=== PATIENT | male | born 1950 | race Caucasian/White ===

== ENCOUNTER 2021-04-13 08:49 | Outpatient (CLI) | payer MEDICARE ==
[2021-04-13 10:42] LABS: Hemoglobin 14.5 g/dL (13.5-17.5); Mean Corpuscular HGB CONC 34.1 g/dL (32.0-36.0); Mean Corpuscular Hemoglobin 32.7 pg (27.0-33.0); Mean Corpuscular Volume 95.7 fl (81.2-95.1); Mean Platelet Volume 11.1 fl (7.4-10.4); Platelet Count 204 10x3/uL (150-450); Red Blood Cell (RBC) Count 4.44 10x6/uL (4.32-5.72); White Blood Cell (WBC) Count 6.8 10x3/uL (3.5-10.5)
[2021-04-13 10:44] LABS: Anion Gap 12 mmol/L (10-20); BUN (Urea Nitrogen) 13 mg/dL (8.4-25.7); Calc. Creatinine Clearance 0 mL/min (70-130); Calcium 9.7 mg/dL (7.8-10.44); Carbon Dioxide 24 mmol/L (23-31); Chloride 106 mmol/L (98-107); Glucose 116 mg/dL (80-115); Potassium 4.4 mmol/L (3.5-5.1); Sodium 138 mmol/L (136-145)
[2021-04-13 22:05] LABS: SARS-CoV-2 NAA Rapid Test Not Detected (NotDetected)
== END 2021-04-13 08:50 | disposition home or self-care (01) ==
LOC: LABBT 08:49
PROVIDERS: ATTEND Thoracic Surgery (Cardiothoracic Vascular Surgery)
DX: Z01.818 Encounter for other preprocedural examination (principal); I51.7 Cardiomegaly; Z20.822 Contact with and (suspected) exposure to COVID-19
CPT/HCPCS: 71046; 80048; 85027; 86850; 86900; 86901; 93005; U0002; U0005; 93010

== ENCOUNTER 2021-04-18 06:11 | Inpatient (IN) | payer MEDICARE ==
[2021-04-13 10:44] LABS: Anion Gap 12 mmol/L (10-20); BUN (Urea Nitrogen) 13 mg/dL (8.4-25.7); Calc. Creatinine Clearance 0 mL/min (70-130); Calcium 9.7 mg/dL (7.8-10.44); Carbon Dioxide 24 mmol/L (23-31); Chloride 106 mmol/L (98-107); Glucose 116 mg/dL (80-115); Potassium 4.4 mmol/L (3.5-5.1); Sodium 138 mmol/L (136-145)
[2021-04-13 22:05] LABS: SARS-CoV-2 NAA Rapid Test Not Detected (NotDetected)
[2021-04-18] MEDS ORDERED: Albumin 5% 500 ML ONE (06:28)
[2021-04-18] MEDS ORDERED: Bupivacaine PF 0.5% 30 ML VIAL ONE (06:28)
[2021-04-18] MEDS ORDERED: EPINEPHrine 1 MG/ML AMP ONE (06:28)
[2021-04-18] MEDS ORDERED: Dexamethasone 4 mg/ml Vial ONE (06:28)
[2021-04-18] MEDS ORDERED: Heparin 10,000 UNITS/1 ML VIAL 30,000 UNITS in Sodium Chloride 0.9% 1,000 ML IVPB SCH (06:45)
[2021-04-18] MEDS ORDERED: Fentanyl 250 MCG/5 ML VIAL ONE (06:52)
[2021-04-18] MEDS ORDERED: Midazolam HCl 5 mg/5 ml Vial ONE (06:52)
[2021-04-18] MEDS ORDERED: Cardioplegic Soln 1,000 ML BAG ONE (07:58)
[2021-04-18] MEDS ORDERED: Protamine Sulfate 250 MG/25 ML VIAL ONE (07:58)
[2021-04-18] MEDS ORDERED: PHENYLEPHRINE-NS 100 MCG/ML 10 ML SYRINGE ONE ×2 (07:58→09:43)
[2021-04-18] MEDS ORDERED: Thrombin 5000 UNITS/5 ML VIAL ONE (07:58)
[2021-04-18] MEDS ORDERED: Papaverine 60 MG/2 ML VIAL ONE (07:58)
[2021-04-18] MEDS ORDERED: Heparin 30,000 units/30 ml VIAL ONE (07:58)
[2021-04-18] MEDS ORDERED: PROPOFOL 200 MG/20 ML VIAL ONE (07:58)
[2021-04-18] MEDS ORDERED: Sodium Bicarb 50 MEQ/50 ML Abboject 8.4% SYRINGE ONE (07:58)
[2021-04-18] MEDS ORDERED: Calcium Chloride 1 GM/10 ML Abboject SYRINGE ONE (07:58)
[2021-04-18] MEDS ORDERED: Vecuronium 10 MG VIAL ONE (07:58)
[2021-04-18] MEDS ORDERED: Aminocaproic Acid 5 GM/20 ML VIAL ONE (07:58)
[2021-04-18] MEDS ORDERED: Heparin 5,000 UNITS/ML VIAL ONE (07:58)
[2021-04-18] MEDS ORDERED: DOPamine 400 MG/10 ML VIAL ONE (07:58)
[2021-04-18] MEDS ORDERED: ePHEDrine Sulfate 50 MG/10 ML VIAL ONE (07:58)
[2021-04-18] MEDS ORDERED: Potassium Chloride 60 MEQ/30 ML VIAL ONE ×2 (07:58)
[2021-04-18] MEDS ORDERED: Rocuronium Bromide 10 MG/ML (10ML VIAL) ONE (07:58)
[2021-04-18] MEDS ORDERED: Lidocaine 2% PF 100 mg/5 ml Syringe ONE (07:58)
[2021-04-18] MEDS ORDERED: Mannitol 12.5 GM/50 ML ONE (07:58)
[2021-04-18] MEDS ORDERED: Magnesium Sulfate 1 GM/2 ML VIAL ONE (07:58)
[2021-04-18] MEDS ORDERED: Insulin Regular 300 UNITS/3 ML VIAL ONE (11:34)
[2021-04-18] MEDS ORDERED: Acetaminophen 325 MG TAB PO PRN (12:41)
[2021-04-18] MEDS ORDERED: Bisacodyl 10 MG SUPP PR PRN (12:41)
[2021-04-18] MEDS ORDERED: Nitroglycerin 50 MG/250 ML BOT 250 ML IVPB PRN (12:41)
[2021-04-18] MEDS ORDERED: Guaifenesin DM 100-10/5 ML UDCUP PO PRN (12:41)
[2021-04-18] MEDS ORDERED: DOPamine 400 MG/D5W 250 ML 250 ML IVPB PRN (12:41)
[2021-04-18] MEDS ORDERED: HYDROcodone/Acetaminophen 5/325 mg Tablet PO PRN ×2 (12:41)
[2021-04-18] MEDS ORDERED: Promethazine HCl 25 MG/ML VIAL IM PRN (12:41)
[2021-04-18] MEDS ORDERED: Mag-Al 1200 mg/1200 mg/30 ML UDCUP PO PRN (12:41)
[2021-04-18] MEDS ORDERED: Fentanyl 100 MCG/2 ML VIAL SLOW IVP PRN ×2 (12:41)
[2021-04-18] MEDS ORDERED: traMADol HCl 50 MG TAB PO PRN ×2 (12:41)
[2021-04-18] MEDS ORDERED: niCARdipine 25 MG in Sodium Chloride 0.9% 250 ML 240 ML IVPB PRN (12:41)
[2021-04-18] MEDS ORDERED: Ondansetron PF 4 MG/2 ML Vial IVP PRN (12:41)
[2021-04-18] MEDS ORDERED: Morphine 2 MG/ML VIAL SLOW IVP PRN (12:41)
[2021-04-18] MEDS ORDERED: Potassium Chloride 20 MEQ/100 ML PREMIX BAG IVPB PRN (12:41)
[2021-04-18] MEDS ORDERED: Bisacodyl 5 MG TAB PO PRN (12:41)
[2021-04-18] MEDS ORDERED: Norepinephrine 8 MG/0.9% NS 250 ML IVPB PRN (12:41)
[2021-04-18] MEDS ORDERED: Hetastarch 6% 500 ML 500 ML IVPB PRN (12:41)
[2021-04-18] MEDS ORDERED: D5 1/2 NS w/20 mEq KCL 1,000 ML IV SCH (12:45)
[2021-04-18] MEDS ORDERED: Dextrose 5% in Water 1,000 ML IV PRN (13:15)
[2021-04-18] MEDS ORDERED: Dextrose 50% Abboject 50 ML SYRINGE SLOW IVP PRN (13:15)
[2021-04-18 13:40] LABS: #Eosinphils 0.1 thou/uL (0.0-0.7); #Lymphocytes 1.8 thou/uL (1.20-3.40); #Monocytes 1.3 thou/uL (0.11-0.59); #Neutrophils 14.9 thou/uL (1.40-6.50); %Basophils 0.2 % (0.0-1.0); %Eosinophils 0.6 % (0.0-10.0); %Lymphocytes 10.1 % (21.0-51.0); %Neutrophils 82.1 % (42.0-75.0); Hemoglobin 14.4 g/dL (14.0-18.0); Mean Corpuscular HGB CONC 35.1 g/dL (32.0-36.0); Mean Corpuscular Hemoglobin 34.6 pg (27.0-31.0); Mean Corpuscular Volume 98.4 fL (78.0-98.0); Mean Platelet Volume 8.8 fL (7.4-10.4); Platelet Count 201 thou/uL (130-400); RBC Distribution Width 12.4 % (11.5-14.5); Red Blood Cell (RBC) Count 4.17 mill/uL (4.70-6.10); White Blood Cell (WBC) Count 18.1 thou/uL (4.8-10.8)
[2021-04-18 13:45] LABS: Actual Bicarbonate (HCO3a) 23.5 mEq/L (22-28); Base Excess (BEa) -2.1 mEq/L (-2.0 to +3.0); CO2 Tension 43.5 mmHg (35.0-45.0); Calcium, Ionized (arterial) 1.15 mmol/L (1.12-1.30); Carboxyhemoglobin (COHb) 0.9 gm% (0.0-3.0); Hemoglobin (Hb) 14.6 g/dL (14.0-18.0); O2 Tension (PaO2), arterial 74.3 mmHg (> 80.0); Potassium - ABG Lab 4.18 mmol/L (3.70-5.30); pH, Arterial 7.35 (7.35-7.45)
[2021-04-18 13:46] LABS: ALV-art Gradient 299.125 mmHg (0-20); Puncture Site Arterial Line
[2021-04-18 13:48] LABS: INR-International Normal Ratio 1.2; PTT 28.2 sec (22.9-36.1); Prothrombin Time 15.7 sec (12.0-14.7)
[2021-04-18] MEDS ORDERED: Magnesium 2 GM/50 ML 2 GM in Premix Bag 1 BAG IVPB SCH (14:00)
[2021-04-18 14:01] LABS: Anion Gap 10 mmol/L (10-20); BUN (Urea Nitrogen) 13 mg/dL (8.4-25.7); Calc. Creatinine Clearance 136 mL/min (70-130); Calcium 8.6 mg/dL (7.8-10.44); Carbon Dioxide 23 mmol/L (23-31); Chloride 108 mmol/L (98-107); Glucose 167 mg/dL (80-115); Potassium 4.3 mmol/L (3.5-5.1); Sodium 137 mmol/L (136-145)
[2021-04-18] MEDS: Insulin Regular 300 UNITS/3 ML VIAL SC PRN ×3 (14:48→20:59)
[2021-04-18] MEDS: CEFAZOLIN 2 GM in Premix Bag 1 BAG IVPB SCH ×2 (14:57→23:14)
[2021-04-18] MEDS: Ketorolac Tromethamine 30 MG/ML VIAL IVP SCH ×2 (17:00→23:14)
[2021-04-18 18:44] LABS: Hemoglobin 14.4 g/dL (14.0-18.0)
[2021-04-18] MEDS: Atorvastatin Calcium 40 MG TAB PO SCH (20:28)
[2021-04-18] MEDS ORDERED: Famotidine/PF 20 mg/2ml Vial SLOW IVP SCH (21:00)
[2021-04-19] MEDS: Insulin Regular 300 UNITS/3 ML VIAL SC PRN (00:13)
[2021-04-19 04:13] LABS: #Lymphocytes 1.4 thou/uL (1.20-3.40); #Monocytes 1.2 thou/uL (0.11-0.59); #Neutrophils 12.1 thou/uL (1.40-6.50); %Basophils 0.1 % (0.0-1.0); %Eosinophils 0.2 % (0.0-10.0); %Lymphocytes 9.4 % (21.0-51.0); %Monocytes 8.4 % (0.0-10.0); %Neutrophils 81.9 % (42.0-75.0); Mean Corpuscular HGB CONC 36.3 g/dL (32.0-36.0); Mean Corpuscular Hemoglobin 35.4 pg (27.0-31.0); Mean Corpuscular Volume 97.5 fL (78.0-98.0); Platelet Count 186 thou/uL (130-400); RBC Distribution Width 12.4 % (11.5-14.5); Red Blood Cell (RBC) Count 3.67 mill/uL (4.70-6.10); White Blood Cell (WBC) Count 14.8 thou/uL (4.8-10.8)
[2021-04-19 04:33] LABS: Anion Gap 13 mmol/L (10-20); BUN (Urea Nitrogen) 16 mg/dL (8.4-25.7); Calc. Creatinine Clearance 130 mL/min (70-130); Calcium 8.4 mg/dL (7.8-10.44); Carbon Dioxide 21 mmol/L (23-31); Chloride 107 mmol/L (98-107); Glucose 173 mg/dL (80-115); Potassium 4.2 mmol/L (3.5-5.1); Sodium 137 mmol/L (136-145)
[2021-04-19 06:48] VITALS: BMI 41.6
[2021-04-19] MEDS: Ketorolac Tromethamine 30 MG/ML VIAL IVP SCH ×4 (07:12→23:32)
[2021-04-19] MEDS: CEFAZOLIN 2 GM in Premix Bag 1 BAG IVPB SCH (07:13)
[2021-04-19] MEDS ORDERED: Guaifenesin DM 100-10/5 ML UDCUP PO PRN (07:28)
[2021-04-19] MEDS ORDERED: Fentanyl 100 MCG/2 ML VIAL SLOW IVP PRN ×2 (07:28)
[2021-04-19] MEDS ORDERED: Mag-Al 1200 mg/1200 mg/30 ML UDCUP PO PRN (07:28)
[2021-04-19] MEDS ORDERED: Nitroglycerin 0.4 MG TAB (25 Tab Bottle) SL PRN (07:28)
[2021-04-19] MEDS ORDERED: Bisacodyl 5 MG TAB PO PRN (07:28)
[2021-04-19] MEDS ORDERED: Mineral Oil ENEMA PR PRN (07:28)
[2021-04-19] MEDS ORDERED: Zolpidem Tartrate 5 MG TAB PO PRN (07:28)
[2021-04-19] MEDS ORDERED: Acetaminophen 325 MG TAB PO PRN (07:28)
[2021-04-19] MEDS ORDERED: Bisacodyl 10 MG SUPP PR PRN (07:28)
[2021-04-19] MEDS ORDERED: diphenhydrAMINE 25 MG CAP PO PRN (07:28)
[2021-04-19] MEDS ORDERED: Milk Of Magnesia 30 ML UDCUP PO PRN (07:28)
[2021-04-19] MEDS: Aspirin 325 MG TAB PO SCH (08:00)
[2021-04-19] MEDS: Carvedilol 3.125 MG TAB PO SCH ×2 (08:00→21:02)
[2021-04-19] MEDS: Magnesium 2 GM/50 ML 2 GM in Premix Bag 1 BAG IVPB SCH (08:02)
[2021-04-19 13:49] LABS: Actual Bicarbonate (HCO3a) 23.5 mEq/L (22-28); Analyzer IN Cardio OR; CO2 Tension 43.1 mmHg (35.0-45.0); Calcium, Ionized (arterial) 1.17 mmol/L (1.12-1.30); Carboxyhemoglobin (COHb) 1.3 gm% (0.0-3.0); Hemoglobin (Hb) 14.2 g/dL (14.0-18.0); O2 Tension (PaO2), arterial 414.2 mmHg (> 80.0); Potassium - ABG Lab 4.24 mmol/L (3.70-5.30); pH, Arterial 7.36 (7.35-7.45)
[2021-04-19 13:50] LABS: Actual Bicarbonate (HCO3a) 22.9 mEq/L (22-28); Analyzer IN Cardio OR; Base Excess (BEa) -2.6 mEq/L (-2.0 to +3.0); CO2 Tension 42.2 mmHg (35.0-45.0); Calcium, Ionized (arterial) 1.11 mmol/L (1.12-1.30); Carboxyhemoglobin (COHb) 0.8 gm% (0.0-3.0); Hemoglobin (Hb) 13.5 g/dL (14.0-18.0); O2 Tension (PaO2), arterial 365.3 mmHg (> 80.0); Potassium - ABG Lab 4.41 mmol/L (3.70-5.30); pH, Arterial 7.35 (7.35-7.45)
[2021-04-19 13:51] LABS: Actual Bicarbonate (HCO3a) 24.3 mEq/L (22-28); Analyzer IN Cardio OR; Base Excess (BEa) -0.1 mEq/L (-2.0 to +3.0); CO2 Tension 38.7 mmHg (35.0-45.0); Calcium, Ionized (arterial) 1.04 mmol/L (1.12-1.30); Carboxyhemoglobin (COHb) 0.1 gm% (0.0-3.0); Hemoglobin (Hb) 11.5 g/dL (14.0-18.0); Potassium - ABG Lab 5.42 mmol/L (3.70-5.30); pH, Arterial 7.42 (7.35-7.45)
[2021-04-19 13:51] LABS: Actual Bicarbonate (HCO3a) 23.8 mEq/L (22-28); Analyzer IN Cardio OR; Base Excess (BEa) -0.7 mEq/L (-2.0 to +3.0); CO2 Tension 38.6 mmHg (35.0-45.0); Calcium, Ionized (arterial) 1.05 mmol/L (1.12-1.30); Carboxyhemoglobin (COHb) 0.6 gm% (0.0-3.0); Hemoglobin (Hb) 11.4 g/dL (14.0-18.0); O2 Tension (PaO2), arterial 363.7 mmHg (> 80.0); Potassium - ABG Lab 5.49 mmol/L (3.70-5.30); pH, Arterial 7.41 (7.35-7.45)
[2021-04-19 13:51] LABS: Actual Bicarbonate (HCO3a) 22.9 mEq/L (22-28); Analyzer IN Cardio OR; Base Excess (BEa) -1.5 mEq/L (-2.0 to +3.0); CO2 Tension 37.7 mmHg (35.0-45.0); Calcium, Ionized (arterial) 0.91 mmol/L (1.12-1.30); Carboxyhemoglobin (COHb) 0.1 gm% (0.0-3.0); Hemoglobin (Hb) 11.2 g/dL (14.0-18.0); Potassium - ABG Lab 4.42 mmol/L (3.70-5.30)
[2021-04-19 13:52] LABS: Actual Bicarbonate (HCO3a) 21.7 mEq/L (22-28); Analyzer IN Cardio OR; Base Excess (BEa) -3.1 mEq/L (-2.0 to +3.0); CO2 Tension 37.9 mmHg (35.0-45.0); Calcium, Ionized (arterial) 1.05 mmol/L (1.12-1.30); Carboxyhemoglobin (COHb) 0.5 gm% (0.0-3.0); Hemoglobin (Hb) 11.3 g/dL (14.0-18.0); O2 Tension (PaO2), arterial 300.6 mmHg (> 80.0); pH, Arterial 7.38 (7.35-7.45)
[2021-04-19 13:53] LABS: Actual Bicarbonate (HCO3a) 21.8 mEq/L (22-28); Analyzer IN Cardio OR; Calcium, Ionized (arterial) 1.09 mmol/L (1.12-1.30); Carboxyhemoglobin (COHb) 0.6 gm% (0.0-3.0); Hemoglobin (Hb) 11.5 g/dL (14.0-18.0); O2 Tension (PaO2), arterial 191.6 mmHg (> 80.0); Potassium - ABG Lab 4.65 mmol/L (3.70-5.30); pH, Arterial 7.38 (7.35-7.45)
[2021-04-19 13:54] LABS: Puncture Site Arterial Line
[2021-04-19 13:54] LABS: Puncture Site Arterial Line
[2021-04-19 13:54] LABS: Actual Bicarbonate (HCO3a) 21.2 mEq/L (22-28); Analyzer IN Cardio OR; Base Excess (BEa) -3.9 mEq/L (-2.0 to +3.0); CO2 Tension 38.7 mmHg (35.0-45.0); Calcium, Ionized (arterial) 1.11 mmol/L (1.12-1.30); Carboxyhemoglobin (COHb) 1.1 gm% (0.0-3.0); Hemoglobin (Hb) 13.2 g/dL (14.0-18.0); O2 Tension (PaO2), arterial 138.4 mmHg (> 80.0); Potassium - ABG Lab 4.25 mmol/L (3.70-5.30); pH, Arterial 7.36 (7.35-7.45)
[2021-04-19 13:55] LABS: Puncture Site Arterial Line
[2021-04-19 13:55] LABS: Puncture Site Arterial Line
[2021-04-19 13:56] LABS: Puncture Site Arterial Line
[2021-04-19 13:56] LABS: Puncture Site Arterial Line
[2021-04-19 13:56] LABS: Puncture Site Arterial Line
[2021-04-19 13:57] LABS: Puncture Site Arterial Line
[2021-04-19] MEDS: Atorvastatin Calcium 40 MG TAB PO SCH (21:02)
[2021-04-20] MEDS: Ketorolac Tromethamine 30 MG/ML VIAL IVP SCH ×4 (05:16→23:44)
[2021-04-20] MEDS ORDERED: Potassium Chloride 10 MEQ TAB PO SCH (08:00)
[2021-04-20] MEDS ORDERED: Furosemide 40 MG TAB PO SCH (09:00)
[2021-04-20] MEDS: Magnesium 2 GM/50 ML 2 GM in Premix Bag 1 BAG IVPB SCH (09:16)
[2021-04-20] MEDS: Aspirin 325 MG TAB PO SCH (09:16)
[2021-04-20] MEDS: Carvedilol 3.125 MG TAB PO SCH ×2 (09:16→20:14)
[2021-04-20] MEDS: Potassium Chloride 10 MEQ TAB PO SCH ×2 (09:17→17:14)
[2021-04-20] MEDS: Furosemide 40 MG TAB PO SCH ×2 (09:17→15:09)
[2021-04-20] MEDS: Atorvastatin Calcium 40 MG TAB PO SCH (20:15)
[2021-04-21] MEDS: Ketorolac Tromethamine 30 MG/ML VIAL IVP SCH ×2 (05:12→11:45)
[2021-04-21] MEDS: Furosemide 40 MG TAB PO SCH ×2 (09:21→14:54)
[2021-04-21] MEDS: Potassium Chloride 10 MEQ TAB PO SCH (09:21)
[2021-04-21] MEDS: Aspirin 325 MG TAB PO SCH (09:21)
[2021-04-21] MEDS: Carvedilol 3.125 MG TAB PO SCH (09:22)
[2021-04-21 16:03] VITALS: BP 152/80; TEMP 98.1
== END 2021-04-21 17:13 | disposition home or self-care (01) | DRG 236 ==
LOC: SDC 06:11 → CCU 12:41 → 2NO 04-19 09:21
PROVIDERS: ADMIT Thoracic Surgery (Cardiothoracic Vascular Surgery); ATTEND Thoracic Surgery (Cardiothoracic Vascular Surgery)
PROC: 02100Z9 Bypass Coronary Artery, One Artery from Left Internal Mammary, Open Approach (ICD-10-PCS; principal; 2021-04-18)
PROC: 021109W Bypass Coronary Artery, Two Arteries from Aorta with Autologous Venous Tissue, Open Approach (ICD-10-PCS; 2021-04-18)
PROC: 06BQ4ZZ Excision of Left Saphenous Vein, Percutaneous Endoscopic Approach (ICD-10-PCS; 2021-04-18)
PROC: 06BP4ZZ Excision of Right Saphenous Vein, Percutaneous Endoscopic Approach (ICD-10-PCS; 2021-04-18)
PROC: 5A1221Z Performance of Cardiac Output, Continuous (ICD-10-PCS; 2021-04-18)
PROC: 02L70ZK Occlusion of Left Atrial Appendage, Open Approach (ICD-10-PCS; 2021-04-18)
DX: I25.118 Atherosclerotic heart disease of native coronary artery with other forms of angina pectoris (principal); Z68.41 Body mass index [BMI] 40.0-44.9, adult; I10 Essential (primary) hypertension; I48.0 Paroxysmal atrial fibrillation; E66.9 Obesity, unspecified; Z20.822 Contact with and (suspected) exposure to COVID-19; I87.2 Venous insufficiency (chronic) (peripheral); Z79.01 Long term (current) use of anticoagulants; Z98.890 Other specified postprocedural states; Z79.82 Long term (current) use of aspirin
CPT/HCPCS: 36416; 36430; 71045; 80048; 82805; 82947; 85025; 85610; 85730; 86850; 86900; 86901; 93005; 93010; 93798; 94002; J0171; J0690; J1100; J1265; J1642; J1644; J1815; J1885; J2001; J2150; J2250; J2270; J2440; J2704; J2720; J3010; J3370; J3475; J3480; J7050; P9045; S0017; S0020; S0028; U0002; U0005